=== PATIENT | male | born 1955 | race Caucasian/White ===

== ENCOUNTER 2025-03-17 17:00 | Outpatient (RCR) | payer OTHER, SELFPAY | END 2025-03-17 23:59 | disposition home or self-care (01) | LOC: ROT 17:00 | PROVIDERS: ATTENDING PHYSICIAN Internal Medicine | DX: M77.01 Medial epicondylitis, right elbow (principal); Z73.6 Limitation of activities due to disability; M62.81 Muscle weakness (generalized) | CPT/HCPCS: 97010; 97110; 97140; 97166; 97535 ==

== ENCOUNTER 2025-04-26 16:21 | Outpatient (RCR) | payer OTHER, SELFPAY | END 2025-04-26 23:59 | disposition home or self-care (01) | LOC: ROT 16:21 | PROVIDERS: ATTENDING PHYSICIAN Internal Medicine | DX: M77.01 Medial epicondylitis, right elbow (principal); Z73.6 Limitation of activities due to disability; M62.81 Muscle weakness (generalized) | CPT/HCPCS: 97010; 97110; 97140 ==